=== PATIENT | male | born 1955 | race Caucasian/White ===

== ENCOUNTER 2017-09-06 21:16 | Emergency (ER) | payer BC ==
[2017-09-06] MEDS ORDERED: Aspirin 81 MG Tab.Chew PO ONE (21:19)
[2017-09-06 21:37] VITALS: BP 169/90
[2017-09-06] MEDS ORDERED: Ibuprofen 600 MG Tab PO ONE (21:39)
--- NOTE | 2017-09-06 21:41 | EDM.PDOC ---
ED HPI GENERAL MEDICAL PROBLEM - General Chief Complaint: Chest Pain Stated Complaint: CHEST PAIN Time Seen by Provider: 09/06/17 21:36 Source of Information: Reports: Patient, Family History Limitations: Reports: No Limitations - History of Present Illness INITIAL COMMENTS - FREE TEXT/NARRATIVE: 61 y.o.w.m came with is SO to ed due to severe right ant shoulder pain after he was cleaning a mud hole out. Pt is right handed. No trauma, no N/V/D no diaphoresis, No H/O CAD. Pain is worse when moving his right shoulder, no F/C BP 169/90 Temp 37.3 pulse 88 Pulse ox 98 Onset: Today Onset Date: 09/06/17 Onset Time: 20:00 Duration: Hour(s):, Improving Location: Reports: Chest Quality: Reports: Dull Severity: Mild Improves with: Reports: Rest Worsens with: Reports: Movement Associated Symptoms: Reports: Chest Pain Right Chest Pain Score (Numeric/FACES): 1 - Related Data Allergies Allergy/AdvReac Type Severity Reaction Status Date / Time Penicillins Allergy Hives Verified 09/06/17 21:34 Home Meds: Home Meds Lisinopril 10 mg PO DAILY 09/06/17 [History] Past Medical History - Past Health History Medical/Surgical History: Denies Medical/Surgical History Social & Family History - Tobacco Use Smoking Status *Q: Never Smoker - Recreational Drug Use Recreational Drug Use: No ED ROS GENERAL - Review of Systems Review Of Systems: See Below Constitutional: Reports: No Symptoms HEENT: Reports: No Symptoms Respiratory: Reports: No Symptoms Cardiovascular: Reports: No Symptoms Endocrine: Reports: No Symptoms GI/Abdominal: Reports: No Symptoms : Reports: No Symptoms Musculoskeletal: Reports: Muscle Pain (r anterior chest wall) Skin: Reports: No Symptoms Neurological: Reports: No Symptoms Psychiatric: Reports: No Symptoms Hematologic/Lymphatic: Reports: No Symptoms Immunologic: Reports: No Symptoms ED EXAM, GENERAL - Physical Exam Exam: See Below Exam Limited By: No Limitations General Appearance: Alert, WD/WN, Mild Distress Eye Exam: Bilateral Eye: Normal Inspection Ears: Normal External Exam Ear Exam: Bilateral Ear: Auricle Normal Nose: Normal Inspection Throat/Mouth: Normal Inspection Head: Atraumatic, Normocephalic Neck: Normal Inspection Respiratory/Chest: No Respiratory Distress, Lungs Clear, Normal Breath Sounds, No Accessory Muscle Use Cardiovascular: Normal Peripheral Pulses, Regular Rate, Rhythm, No Edema, No Gallop, No JVD Peripheral Pulses: 1+: Femoral (L), Femoral (R) GI/Abdominal: Normal Bowel Sounds (Male) Exam: Deferred Rectal (Males) Exam: Deferred Back Exam: Normal Inspection, Full Range of Motion Extremities: Normal Inspection, Normal Range of Motion, Non-Tender, No Pedal Edema Neurological: Alert, Oriented, CN II-XII Intact, Normal Cognition, Normal Gait, Normal Reflexes, No Motor/Sensory Deficits Psychiatric: Normal Affect, Normal Mood Skin Exam: Warm, Dry, Intact, Normal Color, No Rash Lymphatic: No Adenopathy EKG INTERPRETATION EKG Date: 09/06/17 Time: 21:15 Rhythm: NSR Rate (Beats/Min): 84 [place]: Normal P-Wave: Present QRS: Normal ST-T: Normal QT: Normal Comparison: NA - No Prior EKG Course - Vital Signs Text/Narrative:: 61 y.o.w.m came with is SO to ed due to severe right ant shoulder pain after he was cleaning a mud hole out. Pt is right handed. No trauma, no N/V/D no diaphoresis, No H/O CAD. Pain is worse when moving his right shoulder, no F/C BP 169/90 Temp 37.3 pulse 88 Pulse ox 98 PE: WNWD WM NAD with RUQ ant shoulder pain Impression: Ant shoulder pain Tx: ICE, pt will take Motrin at home Reexam: Pt felt better Plan: D/C with instructions. Last Recorded V/S: Last Vital Signs Temp 37.3 C 09/06/17 21:36 Pulse 88 09/06/17 21:36 Resp 18 09/06/17 21:36 BP 169/90 H 09/06/17 21:36 Pulse Ox 98 09/06/17 21:36 - Orders/Labs/Meds Orders: Active Orders 24 hr Category Date Time Status EKG Documentation Completion [RC] ASDIRECTED Care 09/06/17 21:35 Active EKG 12 Lead [EK] Routine Ther 09/06/17 21:35 Ordered Meds: Medications Discontinued Medications Generic Name Dose Route Start Last Admin Trade Name Freq PRN Reason Stop Dose Admin Aspirin 324 mg 09/06/17 21:19 09/06/17 21:19 Aspirin PO 09/06/17 21:20 324 mg ONETIME ONE Administration Departure - Departure Time of Disposition: 21:41 Disposition: Home, Self-Care 01 Condition: Good Clinical Impression: Muscular aches Referrals: Luis Eduardo Robertson MD [Primary Care Provider] - Forms: ED Department Discharge Additional Instructions: Please apply ice to the affected area, please take Motrin for pain, please follow up, please come back it your symptoms get worse acutely. - My Orders Last 24 Hours: My Active Orders 09/06/17 21:35 EKG Documentation Completion [RC] ASDIRECTED EKG 12 Lead [EK] Routine - Assessment/Plan Last 24 Hours: My Active Orders 09/06/17 21:35 EKG Documentation Completion [RC] ASDIRECTED EKG 12 Lead [EK] Routine
== END 2017-09-06 21:47 | disposition home or self-care (01) ==
LOC: FB.ED 21:16
DX: M25.511 Pain in right shoulder (principal); M79.1 Myalgia; Z88.0 Allergy status to penicillin
CPT/HCPCS: 93005; 99285; A9270; 99284

== ENCOUNTER 2018-04-14 21:58 | Emergency (ER) | payer BC ==
[2018-04-14] MEDS ORDERED: Aspirin 81 MG Tab.Chew PO ONE (22:30)
[2018-04-14] MEDS ORDERED: Sodium Chloride 0.9% 1,000 ML IV SCH ×2 (22:30→22:45)
[2018-04-14] MEDS ORDERED: Diltiazem 25 MG/5 ML SDV IVPUSH ONE (23:30)
--- NOTE | 2018-04-15 00:31 | EDM.PDOC ---
ED HPI GENERAL MEDICAL PROBLEM - General Stated Complaint: IRREGULAR HEARBEAT Time Seen by Provider: 04/14/18 22:05 Source of Information: Reports: Patient History Limitations: Reports: No Limitations - History of Present Illness INITIAL COMMENTS - FREE TEXT/NARRATIVE: c/o dizzy working outside all day, at 4p felt weak and lighted and dizzy, no sob, no cp felt warm, no fever, no sweats never smoked no prior afib or CV problems had AF with RVR with rate 132 on arrival, EKG neg initial top 0.03, repeat at 2h was 0.06 d/w Dr Conrad at [facility] who accepted pt in transfer given 1 liters of IVF prior to giving diltiazem 20 mg IV, HR dec'd into 80s but still in afib u/a dilute did drink over 32 oz water today, no caffeine and daughter present has htn, on lisinopril 10 mg daily as only med - Related Data Allergies Allergy/AdvReac Type Severity Reaction Status Date / Time Penicillins Allergy Hives Verified 04/15/18 01:37 Home Meds: Home Meds Lisinopril 10 mg PO DAILY 09/06/17 [History] Past Medical History - Past Health History Medical/Surgical History: Denies Medical/Surgical History Cardiovascular History: Reports: Hypertension Social & Family History - Caffeine Use Caffeine Use: Reports: Coffee, Soda ED ROS GENERAL - Review of Systems Review Of Systems: See Below Constitutional: Reports: Weakness. Denies: Fever HEENT: Reports: No Symptoms Respiratory: Reports: No Symptoms Cardiovascular: Reports: No Symptoms. Denies: Chest Pain, Edema, Palpitations Endocrine: Reports: No Symptoms GI/Abdominal: Reports: No Symptoms : Reports: No Symptoms Musculoskeletal: Reports: No Symptoms Skin: Reports: No Symptoms Neurological: Reports: Dizziness Psychiatric: Reports: No Symptoms Hematologic/Lymphatic: Reports: No Symptoms Immunologic: Reports: No Symptoms ED EXAM, GENERAL - Physical Exam Exam: See Below Exam Limited By: No Limitations General Appearance: Alert, WD/WN, No Apparent Distress Eye Exam: Bilateral Eye: Normal Inspection Ears: Normal External Exam, Normal Canal, Hearing Grossly Normal Nose: Normal Inspection, Normal Mucosa, No Blood Throat/Mouth: Normal Inspection, Normal Lips, Normal Teeth, Normal Gums, Normal Oropharynx, Normal Voice, No Airway Compromise Head: Atraumatic, Normocephalic Neck: Normal Inspection, Supple, Non-Tender, Full Range of Motion Respiratory/Chest: No Respiratory Distress, Lungs Clear, Normal Breath Sounds, No Accessory Muscle Use, Chest Non-Tender Cardiovascular: No Edema, No Gallop, No JVD, No Rub, Other (irreg irreg, 2/6 [place] at [place], quiet precoridum) GI/Abdominal: Soft, Non-Tender, No Distention Back Exam: Normal Inspection, Full Range of Motion, NT Extremities: Normal Inspection, Normal Range of Motion, Non-Tender, No Pedal Edema Neurological: Alert, Oriented, CN II-XII Intact, Normal Cognition, No Motor/ Sensory Deficits Psychiatric: Normal Affect, Normal Mood Skin Exam: Warm, Dry, Intact, Normal Color, No Rash Lymphatic: No Adenopathy Course - Vital Signs Last Recorded V/S: Last Vital Signs Temp 36.8 C 04/14/18 22:08 Pulse 141 H 04/14/18 22:08 Resp 18 04/14/18 22:08 BP 137/77 04/14/18 22:08 Pulse Ox 97 04/14/18 22:08 - Orders/Labs/Meds Orders: Active Orders 24 hr Category Date Time Status INR,PT,PROTHROMBIN TIME [COAG] Stat Lab 04/15/18 01:53 Received PTT,PARTIAL THROMBOPLSTIN TIME [COAG] Stat Lab 04/15/18 01:53 Received Heparin Sodium/0.45% NaCl [Heparin 25,000 Units in 1/2 Med 04/15/18 01:30 Active NS 500 ML] 25,000 units in 500 ml IV TITRATE Medication Orders Heparin Sodium/Sodium Chloride (Heparin 25,000 Units In 1/2 Ns 500 Ml) 25,000 units in 500 mls @ 20 mls/hr IV TITRATE PATRICIA; Protocol Labs: Laboratory Tests 04/14/18 04/14/18 04/14/18 Range/Units 22:35 22:35 22:35 WBC 9.5 (4.5-12.0) X10-3/uL RBC 4.33 (4.30-5.75) x10(6)uL Hgb 14.2 (11.5-15.5) g/dL Hct 40.6 (30.0-51.3) % MCV 93.8 (80-96) fL MCH 32.9 (27.7-33.6) pg MCHC 35.1 (32.2-35.4) g/dL RDW 12.7 (11.5-15.5) % Plt Count 293 (125-369) X10(3)uL MPV 8.3 (7.4-10.4) fL Neut % (Auto) 56.7 (46-82) % Lymph % (Auto) 30.0 (13-37) % [place] % (Auto) 9.0 (4-12) % Eos % (Auto) 2 (1.0-5.0) % Baso % (Auto) 2 (0-2) % Neut # (Auto) 5.4 (1.6-8.3) # Lymph # (Auto) 2.8 (0.6-5.0) # [place] # (Auto) 0.9 (0.0-1.3) # Eos # (Auto) 0.2 (0.0-0.8) # Baso # (Auto) 0.2 (0.0-0.2) # D-Dimer, Quantitative (0.0-0.59) mg/LFEU Sodium 139 (135-145) mmol/L Potassium 4.4 (3.5-5.3) mmol/L Chloride 105 (100-110) mmol/L Carbon Dioxide 23 (21-32) mmol/L BUN 22 H (7-18) mg/dL Creatinine 1.0 (0.70-1.30) mg/dL Est Cr Clr Drug Dosing TNP Estimated GFR (MDRD) > 60 (>60) BUN/Creatinine Ratio 22.0 H (9-20) Glucose 131 H (80-116) mg/dL Calcium 9.1 (8.6-10.2) mg/dL Total Bilirubin 0.3 (0.1-1.3) mg/dL AST 23 (5-25) IU/L ALT 24 (12-36) U/L Alkaline Phosphatase 71 (56-112) IU/L Troponin I 0.034 (<0.017-0.056) ng/mL C-Reactive Protein 0.4 L (0.5-0.9) mg/dL NT-Pro-B Natriuret Pep 162 H (<=125) pg/mL Total Protein 6.9 (6.0-8.0) g/dL Albumin 3.8 (3.2-4.6) g/dL Globulin 3.1 g/dL Albumin/Globulin Ratio 1.2 TSH, Ultra Sensitive 1.62 (0.36-3.74) IU/mL Urine Color (YELLOW) Urine Appearance (CLEAR) Urine pH (5.0-6.5) Ur Specific [place] (1.010-1.025) Urine Protein (NEGATIVE) mg/dL Urine Glucose (UA) (NEGATIVE) mg/dL Urine Ketones (NEGATIVE) mg/dL Urine Occult Blood (NEGATIVE) Urine Nitrite (NEGATIVE) Urine Bilirubin (NEGATIVE) Urine Urobilinogen (NEGATIVE) mg/dL Ur Leukocyte Esterase (NEGATIVE) Urine RBC (0) Urine WBC (0) Ur Squamous Epith Cells (NS,R,O) Urine Bacteria (NS) 04/14/18 04/15/18 04/15/18 Range/Units 22:35 00:25 00:50 WBC (4.5-12.0) X10-3/uL RBC (4.30-5.75) x10(6)uL Hgb (11.5-15.5) g/dL Hct (30.0-51.3) % MCV (80-96) fL MCH (27.7-33.6) pg MCHC (32.2-35.4) g/dL RDW (11.5-15.5) % Plt Count (125-369) X10(3)uL MPV (7.4-10.4) fL Neut % (Auto) (46-82) % Lymph % (Auto) (13-37) % [place] % (Auto) (4-12) % Eos % (Auto) (1.0-5.0) % Baso % (Auto) (0-2) % Neut # (Auto) (1.6-8.3) # Lymph # (Auto) (0.6-5.0) # [place] # (Auto) (0.0-1.3) # Eos # (Auto) (0.0-0.8) # Baso # (Auto) (0.0-0.2) # D-Dimer, Quantitative 0.44 (0.0-0.59) mg/LFEU Sodium (135-145) mmol/L Potassium (3.5-5.3) mmol/L Chloride (100-110) mmol/L Carbon Dioxide (21-32) mmol/L BUN (7-18) mg/dL Creatinine (0.70-1.30) mg/dL Est Cr Clr Drug Dosing Estimated GFR (MDRD) (>60) BUN/Creatinine Ratio (9-20) Glucose (80-116) mg/dL Calcium (8.6-10.2) mg/dL Total Bilirubin (0.1-1.3) mg/dL AST (5-25) IU/L ALT (12-36) U/L Alkaline Phosphatase (56-112) IU/L Troponin I 0.068 H (<0.017-0.056) ng/mL C-Reactive Protein (0.5-0.9) mg/dL NT-Pro-B Natriuret Pep (<=125) pg/mL Total Protein (6.0-8.0) g/dL Albumin (3.2-4.6) g/dL Globulin g/dL Albumin/Globulin Ratio TSH, Ultra Sensitive (0.36-3.74) IU/mL Urine Color Yellow (YELLOW) Urine Appearance Clear (CLEAR) Urine pH 5.0 (5.0-6.5) Ur Specific [place] 1.020 (1.010-1.025) Urine Protein Negative (NEGATIVE) mg/dL Urine Glucose (UA) Normal (NEGATIVE) mg/dL Urine Ketones Negative (NEGATIVE) mg/dL Urine Occult Blood Negative (NEGATIVE) Urine Nitrite Negative (NEGATIVE) Urine Bilirubin Negative (NEGATIVE) Urine Urobilinogen Normal (NEGATIVE) mg/dL Ur Leukocyte Esterase Negative (NEGATIVE) Urine RBC 0-5 (0) Urine WBC 0-5 (0) Ur Squamous Epith Cells Occasional (NS,R,O) Urine Bacteria Few H (NS) Meds: Medications Generic Name Dose Route Start Last Admin Trade Name Freq PRN Reason Stop Dose Admin Heparin Sodium/Sodium Chloride 25,000 units in 500 mls @ 20 mls/hr 04/15/18 01 :30 Heparin 25,000 Units In 1/2 Ns 500 Ml IV TITRATE PATRICIA Protocol Discontinued Medications Generic Name Dose Route Start Last Admin Trade Name Freq PRN Reason Stop Dose Admin Heparin Sodium (Porcine) Confirm 04/15/18 01:45 Heparin Sodium Administered 04/15/18 01:46 Dose 5,000 units .ROUTE .STK-MED ONE Heparin Sodium (Porcine) 4,000 units 04/15/18 01:49 Heparin Sodium IVPUSH 04/15/18 01:50 ONETIME ONE Departure - Departure Time of Disposition: 01:23 Disposition: DC/Tfer to Acute Hospital 02 Reason for Transfer *Q: Other Condition: Good Clinical Impression: Atrial fibrillation with rapid ventricular response, Dehydration, Elevated BUN , Elevated troponin Referrals: Luis Eduardo Robertson MD [Primary Care Provider] - - My Orders Last 24 Hours: My Active Orders 04/15/18 01:30 Heparin Sodium/0.45% NaCl [Heparin 25,000 Units in 1/2 NS 500 ML] 25,000 units in 500 ml IV TITRATE 04/15/18 01:53 INR,PT,PROTHROMBIN TIME [COAG] Stat PTT,PARTIAL THROMBOPLSTIN TIME [COAG] Stat - Assessment/Plan Last 24 Hours: My Active Orders 04/15/18 01:30 Heparin Sodium/0.45% NaCl [Heparin 25,000 Units in 1/2 NS 500 ML] 25,000 units in 500 ml IV TITRATE 04/15/18 01:53 INR,PT,PROTHROMBIN TIME [COAG] Stat PTT,PARTIAL THROMBOPLSTIN TIME [COAG] Stat
[2018-04-15] MEDS ORDERED: Heparin Sodium/0.45% NaCl 25,000 UNITS/500 ML BAG IV SCH (01:30)
[2018-04-15] MEDS ORDERED: Heparin Sodium 5,000 Units/ML Vial ONE (01:45)
[2018-04-15] MEDS ORDERED: Heparin Sodium 5,000 Units/ML Vial IVPUSH ONE (01:49)
[2018-04-15 03:20] VITALS: BP 122/92
[2018-04-15] MEDS ORDERED: Sodium Chloride 0.9% 1,000 ML IV SCH (07:30)
--- NOTE | 2018-04-15 12:08 | CR ---
INDICATION: Irregular heartbeat. CHEST: PA and lateral views of the chest were obtained 04/15/2018 - no comparisons. The heart is normal in size and shape. The aorta is tortuous. Overlying EKG leads are noted. A mild dextroconcave scoliosis of the lower middle thoracic spine is noted with mild degenerative changes in that area off vertebral bodies anteriorly. Lateral hypertrophic changes are also noted in the lower thoracic levels on the right. An active infiltrate or effusion was not identified. IMPRESSION: 1. No acute process. 2. ASD aorta - mild. 3. Mild scoliosis. MTDD
== END 2018-04-15 02:05 ==
LOC: FB.ED 21:58
DX: I48.91 Unspecified atrial fibrillation (principal); E86.0 Dehydration; R79.89 Other specified abnormal findings of blood chemistry; I10 Essential (primary) hypertension; Z88.0 Allergy status to penicillin; Z79.899 Other long term (current) drug therapy
CPT/HCPCS: 36415; 71046; 80053; 81001; 83880; 84443; 84484; 85025; 85379; 85610; 85730; 86140; 96360; 96361; 96374; 96376; 99284; A9270; J1644; J3490; J7030

== ENCOUNTER 2019-04-04 13:15 | Emergency (ER) | payer BC ==
[2019-04-04] MEDS ORDERED: Meclizine 25 MG Tab PO ONE (13:33)
--- NOTE | 2019-04-04 13:37 | EDM.PDOC ---
ED HPI GENERAL MEDICAL PROBLEM - General Stated Complaint: DIZZY, HBP Time Seen by Provider: 04/04/19 13:15 Source of Information: Reports: Patient, Family History Limitations: Reports: No Limitations - History of Present Illness INITIAL COMMENTS - FREE TEXT/NARRATIVE: 63 y.o.w.m came with his to the ed due to dizziness. Dizziness is worse when moving his head to the right. Pt has a H/O A fib, taxes Xarelto. He is currently in NSR. No N/V/D, no CP, no SOB or any other acute med issues. BP 156 /97 RR 18 Pulse ox 98% on RA Temp 36.4 Pulse 72 Onset Date: 04/04/19 Onset Time: 12:00 Duration: Minutes:, Hour(s):, Constant Location: Reports: Head Quality: Reports: Other (dizzy) Severity: Mild Improves with: Reports: Rest Worsens with: Reports: Movement Context: Reports: Other Associated Symptoms: Reports: No Other Symptoms - Related Data Allergies Allergy/AdvReac Type Severity Reaction Status Date / Time Penicillins Allergy Hives Verified 04/04/19 13:29 Home Meds: Home Meds Aspirin [Ecotrin] 81 mg PO BEDTIME 04/04/19 [History] Meclizine [Antivert] 25 mg PO Q6H PRN #12 tab 04/04/19 [Rx] Metoprolol Succinate 25 mg BEDTIME 04/04/19 [History] Rivaroxaban [Xarelto] 20 mg BEDTIME 04/04/19 [History] atorvaSTATin Calcium [Atorvastatin Calcium] 10 mg BEDTIME 04/04/19 [History] Past Medical History - Past Health History Medical/Surgical History: Denies Medical/Surgical History Cardiovascular History: Reports: Hypertension Musculoskeletal History: Reports: Fracture Other Musculoskeletal History: hx fx ribs - Infectious Disease History Infectious Disease History: Reports: Chicken Pox, Measles, Mumps, Shingles Social & Family History - Family History Family Medical History: Noncontributory - Caffeine Use Caffeine Use: Reports: Coffee, Soda ED ROS GENERAL - Review of Systems Review Of Systems: See Below Constitutional: Reports: No Symptoms HEENT: Reports: No Symptoms Respiratory: Reports: No Symptoms Cardiovascular: Reports: No Symptoms Endocrine: Reports: No Symptoms GI/Abdominal: Reports: No Symptoms : Reports: No Symptoms Musculoskeletal: Reports: No Symptoms Skin: Reports: No Symptoms Neurological: Reports: Dizziness Psychiatric: Reports: No Symptoms Hematologic/Lymphatic: Reports: No Symptoms Immunologic: Reports: No Symptoms ED EXAM, GENERAL - Physical Exam Exam: See Below Exam Limited By: No Limitations General Appearance: Alert, WD/WN, Mild Distress Eye Exam: Bilateral Eye: Nystagmus (more at gaze to the right ) Ears: Normal External Exam Ear Exam: Bilateral Ear: Auricle Normal Nose: Normal Inspection Throat/Mouth: Normal Inspection Head: Atraumatic, Normocephalic Neck: Normal Inspection, Supple, Non-Tender Respiratory/Chest: No Respiratory Distress, Lungs Clear, Normal Breath Sounds, Chest Non-Tender Cardiovascular: Normal Peripheral Pulses, Regular Rate, Rhythm, No Edema Peripheral Pulses: 2+: Brachial (L) GI/Abdominal: Normal Bowel Sounds, Soft, Non-Tender, No Organomegaly (Male) Exam: Deferred Rectal (Males) Exam: Deferred Back Exam: Normal Inspection, Full Range of Motion Extremities: Normal Inspection, Normal Range of Motion, Non-Tender, Normal Capillary Refill Neurological: Alert, Oriented, CN II-XII Intact, Abnormal Gait (due to dizziness ) Psychiatric: Normal Affect, Normal Mood Skin Exam: Warm, Dry, Intact, Normal Color, No Rash Lymphatic: No Adenopathy EKG INTERPRETATION EKG Date: 04/04/19 Time: 13:00 Rhythm: NSR Rate (Beats/Min): 67 [place]: Normal P-Wave: Present QRS: Normal ST-T: Normal QT: Normal Comparison: NA - No Prior EKG Course - Vital Signs Text/Narrative:: 63 y.o.w.m came with his to the ed due to dizziness. Dizziness is worse when moving his head to the right. Pt has a H/O A fib, taxes Xarelto. He is currently in NSR. No N/V/D, no CP, no SOB or any other acute med issues. BP 156 /97 RR 18 Pulse ox 98% on RA Temp 36.4 Pulse 72 PE: WNWD W M with bilat nystagmus Labs: CBC. BMP Troponin: all Nl Impression: Vertigo, BPPV Tx: Antivert Reexam: Symptoms improved 98%, was ambulating fine, Nystagmus improved 98% Plan: D/C with instructions. Last Recorded V/S: Last Vital Signs Temp 36.4 C 04/04/19 13:15 Pulse 69 04/04/19 14:25 Resp 18 04/04/19 14:25 BP 152/93 H 04/04/19 14:25 Pulse Ox 98 04/04/19 14:25 Orthostatic Blood Pressure [ 132/100 Standing] Orthostatic Blood Pressure [ 165/96 Sitting] Orthostatic Blood Pressure [ 154/82 Supine] - Orders/Labs/Meds Labs: Laboratory Tests 04/04/19 04/04/19 04/04/19 Range/Units 13:25 13:25 13:25 WBC 7.2 (4.5-12.0) X10-3/uL RBC 4.43 (4.30-5.75) x10(6)uL Hgb 14.4 (13.5-17.8) g/dL Hct 41.4 (30.0-51.3) % MCV 93.5 (80-96) fL MCH 32.6 (27.7-33.6) pg MCHC 34.9 (32.2-35.4) g/dL RDW 12.8 (11.5-15.5) % Plt Count 254 (125-369) X10(3)uL MPV 8.2 (7.4-10.4) fL Neut % (Auto) 62.4 (46-82) % Lymph % (Auto) 26.3 (13-37) % [place] % (Auto) 7.1 (4-12) % Eos % (Auto) 3 (1.0-5.0) % Baso % (Auto) 1 (0-2) % Neut # (Auto) 4.4 (1.6-8.3) # Lymph # (Auto) 1.9 (0.6-5.0) # [place] # (Auto) 0.5 (0.0-1.3) # Eos # (Auto) 0.2 (0.0-0.8) # Baso # (Auto) 0.1 (0.0-0.2) # Sodium 141 (135-145) mmol/L Potassium 4.2 (3.5-5.3) mmol/L Chloride 105 (100-110) mmol/L Carbon Dioxide 30 (21-32) mmol/L BUN 11 D (7-18) mg/dL Creatinine 0.9 (0.70-1.30) mg/dL Est Cr Clr Drug Dosing 99.10 mL/min Estimated GFR (MDRD) > 60 (>60) BUN/Creatinine Ratio 12.2 (9-20) Glucose 103 (80-116) mg/dL Calcium 8.8 (8.6-10.2) mg/dL Troponin I < 0.017 L (<0.017-0.056) ng/mL Meds: Medications Discontinued Medications Generic Name Dose Route Start Last Admin Trade Name Freq PRN Reason Stop Dose Admin Aspirin 324 mg 04/04/19 13:53 04/04/19 14:31 Aspirin PO 04/04/19 13:54 324 mg ONETIME ONE Administration Meclizine HCl 50 mg 04/04/19 13:33 04/04/19 13:53 Antivert PO 04/04/19 13:34 50 mg ONETIME ONE Administration Departure - Departure Time of Disposition: 14:20 Disposition: Home, Self-Care 01 Condition: Good Clinical Impression: Vertigo Prescriptions: Meclizine [Antivert] 25 mg PO Q6H PRN #12 tab PRN Reason: for dizziness Instructions: Meclizine tablets or capsules, Vertigo, [id number], Dizziness, [id number] Referrals: Luis Eduardo Robertson MD [Primary Care Provider] - Forms: ED Department Discharge Additional Instructions: Please continue your home medications, please take Antivert as recommended, please follow up with your regular MD at clinic to schedule an MRI brain. Please come back if your symptoms get worse acutely.
[2019-04-04] MEDS ORDERED: Aspirin 81 MG Tab.Chew PO ONE (13:53)
[2019-04-04 16:45] VITALS: BP 152/93
== END 2019-04-04 14:40 | disposition home or self-care (01) ==
LOC: FB.ED 13:15
DX: H81.11 Benign paroxysmal vertigo, right ear (principal); I10 Essential (primary) hypertension; Z88.0 Allergy status to penicillin; Z79.82 Long term (current) use of aspirin; Z79.899 Other long term (current) drug therapy
CPT/HCPCS: 36415; 80048; 84484; 85025; 99283; A9270

== ENCOUNTER 2019-04-26 22:58 | Emergency (ER) | payer BC ==
[2019-04-26] MEDS: Sodium Chloride 0.9% 10 ML Syringe FLUSH PRN (23:10)
--- NOTE | 2019-04-26 23:35 | EDM.PDOC ---
ED HPI GENERAL MEDICAL PROBLEM - General Chief Complaint: Cardiovascular Problem Stated Complaint: HEART PROBLEMS Time Seen by Provider: 04/26/19 23:20 Source of Information: Reports: Patient History Limitations: Reports: No Limitations - History of Present Illness INITIAL COMMENTS - FREE TEXT/NARRATIVE: pt c/o palpitation for the past 2 hrs, initially felt little twinge at chest lasting for moments when it started but this has resolved since, pt denies any chest pain or SOB or syncope or any other associated sx. pt report a Hx of recurrent afib and a nl stress test about a year ago. pt is anticoagulated and on metoprolol 25 daily. - Related Data Allergies Allergy/AdvReac Type Severity Reaction Status Date / Time Penicillins Allergy Hives Verified 04/26/19 23:19 Home Meds: Home Meds Aspirin [Ecotrin] 81 mg PO BEDTIME 04/04/19 [History] Metoprolol Succinate 25 mg BEDTIME 04/04/19 [History] Rivaroxaban [Xarelto] 20 mg BEDTIME 04/04/19 [History] atorvaSTATin Calcium [Atorvastatin Calcium] 10 mg BEDTIME 04/04/19 [History] Past Medical History - Past Health History Medical/Surgical History: Denies Medical/Surgical History Cardiovascular History: Reports: Afib, Hypertension Musculoskeletal History: Reports: Fracture Other Musculoskeletal History: hx fx ribs Endocrine/Metabolic History: Reports: Obesity/BMI 30+ Hematologic History: Reports: Anticoagulation Therapy - Infectious Disease History Infectious Disease History: Reports: Chicken Pox, Measles, Mumps, Shingles - Past Surgical History Head Surgeries/Procedures: Reports: None Social & Family History - Family History Family Medical History: Noncontributory - Tobacco Use Smoking Status *Q: Never Smoker - Caffeine Use Caffeine Use: Reports: None - Recreational Drug Use Recreational Drug Use: No ED ROS GENERAL - Review of Systems Review Of Systems: See Below Constitutional: Reports: No Symptoms. Denies: Fever, Chills HEENT: Reports: No Symptoms Respiratory: Reports: No Symptoms. Denies: Shortness of Breath, Pleuritic Chest Pain, Cough Cardiovascular: Reports: No Symptoms. Denies: Chest Pain, Blood Pressure Problem, Dyspnea on Exertion, Edema GI/Abdominal: Reports: No Symptoms. Denies: Abdominal Pain, Nausea, Vomiting Musculoskeletal: Reports: No Symptoms Skin: Reports: No Symptoms ED EXAM, GENERAL - Physical Exam Exam: See Below Exam Limited By: No Limitations General Appearance: Alert, No Apparent Distress Eye Exam: Bilateral Eye: Normal Inspection Respiratory/Chest: No Respiratory Distress, Lungs Clear, Normal Breath Sounds Cardiovascular: Normal Peripheral Pulses, Regular Rate, Rhythm GI/Abdominal: Normal Bowel Sounds, Soft, Non-Tender Extremities: Normal Inspection, Normal Range of Motion Neurological: Alert, Oriented, CN II-XII Intact Course - Vital Signs Text/Narrative:: unremarkable labs were explained to pt , EKG shows afib. pt HR was controlled and remained this way after Cardizem and Lopressor , rest of his vitals are WNL. pt has recurrent chronic afib and he is asymptomatic with this at this time, he did not convert yet and likely to do so on his own , pt was hydrated with 1 litter NS and will increase his metoprolol to 50 mg daily, pt to follow with PCP in the morning for re-check and return to ER if becoming symptomatic again. Last Recorded V/S: Last Vital Signs Temp 36.6 C 04/26/19 22:58 Pulse 145 H 04/26/19 22:58 Resp 18 04/26/19 22:58 BP 175/94 H 04/26/19 22:58 Pulse Ox 96 04/26/19 22:58 - Orders/Labs/Meds Orders: Active Orders 24 hr Category Date Time Status EKG Documentation Completion [RC] ASDIRECTED Care 04/26/19 23:39 Active Chest 1V Frontal [CR] Stat Exams 04/26/19 23:37 Taken Metoprolol Tartrate [Lopressor] Med 04/27/19 01:15 Active 5 mg IVPUSH Q5M Sodium Chloride 0.9% [Saline Flush] Med 04/26/19 23:25 Active 10 ml FLUSH ASDIRECTED PRN Peripheral IV Insertion Adult [OM.PC] Routine Oth 04/26/19 23:25 Ordered EKG 12 Lead [EK] Routine Ther 04/26/19 23:39 Ordered Medication Orders Metoprolol Tartrate (Lopressor) 5 mg IVPUSH Q5M PATRICIA Stop: 04/27/19 01:21 Sodium Chloride (Saline Flush) 10 ml FLUSH ASDIRECTED PRN PRN Reason: Keep Vein Open Labs: Laboratory Tests 04/26/19 04/26/19 04/26/19 Range/Units 23:08 23:08 23:08 WBC 11.2 (4.5-12.0) X10-3/uL RBC 4.52 (4.30-5.75) x10(6)uL Hgb 15.2 (13.5-17.8) g/dL Hct 42.6 (30.0-51.3) % MCV 94.2 (80-96) fL MCH 33.5 (27.7-33.6) pg MCHC 35.6 H (32.2-35.4) g/dL RDW 12.8 (11.5-15.5) % Plt Count 268 (125-369) X10(3)uL Sodium 142 (135-145) mmol/L Potassium 3.5 (3.5-5.3) mmol/L Chloride 105 (100-110) mmol/L Carbon Dioxide 27 (21-32) mmol/L BUN 17 (7-18) mg/dL Creatinine 0.9 (0.70-1.30) mg/dL Est Cr Clr Drug Dosing 99.10 mL/min Estimated GFR (MDRD) > 60 (>60) BUN/Creatinine Ratio 18.9 (9-20) Glucose 129 H (80-116) mg/dL Calcium 9.1 (8.6-10.2) mg/dL Total Bilirubin 0.3 (0.1-1.3) mg/dL AST 15 D (5-25) IU/L ALT 29 D (12-36) U/L Alkaline Phosphatase 98 (56-112) IU/L Troponin I < 0.017 L (<0.017-0.056) ng/mL Total Protein 7.5 (6.0-8.0) g/dL Albumin 4.2 (3.2-4.6) g/dL Globulin 3.3 g/dL Albumin/Globulin Ratio 1.3 TSH, Ultra Sensitive 2.07 (0.36-3.74) IU/mL Meds: Medications Generic Name Dose Route Start Last Admin Trade Name Freq PRN Reason Stop Dose Admin Metoprolol Tartrate 5 mg 04/27/19 01:15 Lopressor IVPUSH 04/27/19 01:21 Q5M PATRICIA Sodium Chloride 10 ml 04/26/19 23:25 Saline Flush FLUSH ASDIRECTED PRN Keep Vein Open Discontinued Medications Generic Name Dose Route Start Last Admin Trade Name Freq PRN Reason Stop Dose Admin Diltiazem HCl Confirm 04/26/19 23:36 04/26/19 23:52 Diltiazem Administered 04/26/19 23:37 Not Given Dose 25 mg .ROUTE .STK-MED ONE Diltiazem HCl 20 mg 04/26/19 23:37 04/26/19 23:43 Diltiazem IVPUSH 04/26/19 23:38 20 mg ONETIME ONE Administration Sodium Chloride 1,000 mls @ 999 drops/sec 04/26/19 23:37 04/26/19 23:30 Normal Saline IV 04/26/19 23:38 999 drops/sec .BOLUS ONE Administration Departure - Departure Time of Disposition: 01:10 Disposition: Home, Self-Care 01 Clinical Impression: Atrial fibrillation with rapid ventricular response Referrals: Luis Eduardo Robertson MD [Primary Care Provider] - Forms: ED Department Discharge - Problem List & Annotations (1) Atrial fibrillation with RVR SNOMED Code(s): 836833852390439 Code(s): I48.91 - UNSPECIFIED ATRIAL FIBRILLATION Status: Acute Current Visit: Yes - My Orders Last 24 Hours: My Active Orders 04/26/19 23:25 Sodium Chloride 0.9% [Saline Flush] 10 ml FLUSH ASDIRECTED PRN Peripheral IV Insertion Adult [OM.PC] Routine 04/26/19 23:37 Chest 1V Frontal [CR] Stat 04/26/19 23:39 EKG Documentation Completion [RC] ASDIRECTED EKG 12 Lead [EK] Routine 04/27/19 01:15 Metoprolol Tartrate [Lopressor] 5 mg IVPUSH Q5M - Assessment/Plan Last 24 Hours: My Active Orders 04/26/19 23:25 Sodium Chloride 0.9% [Saline Flush] 10 ml FLUSH ASDIRECTED PRN Peripheral IV Insertion Adult [OM.PC] Routine 04/26/19 23:37 Chest 1V Frontal [CR] Stat 04/26/19 23:39 EKG Documentation Completion [RC] ASDIRECTED EKG 12 Lead [EK] Routine 04/27/19 01:15 Metoprolol Tartrate [Lopressor] 5 mg IVPUSH Q5M
[2019-04-26] MEDS ORDERED: Diltiazem 25 MG/5 ML SDV ONE (23:36)
[2019-04-26] MEDS ORDERED: Diltiazem 25 MG/5 ML SDV IVPUSH ONE (23:37)
[2019-04-26] MEDS ORDERED: Sodium Chloride 0.9% 1,000 ML IV ONE (23:37)
[2019-04-27] MEDS: Metoprolol Tartrate 5 MG/5 ML SDV IVPUSH SCH ×2 (01:10→01:30)
[2019-04-27 01:31] VITALS: BP 111/69
[2019-04-27] MEDS: Sodium Chloride 0.9% 10 ML Syringe FLUSH PRN (01:38)
== END 2019-04-27 02:17 | disposition home or self-care (01) ==
LOC: FB.ED 22:58
DX: I48.91 Unspecified atrial fibrillation (principal); I10 Essential (primary) hypertension; E66.9 Obesity, unspecified; Z79.01 Long term (current) use of anticoagulants; Z88.0 Allergy status to penicillin; Z79.899 Other long term (current) drug therapy; Z79.82 Long term (current) use of aspirin
CPT/HCPCS: 36415; 71045; 80053; 84443; 84484; 85027; 93005; 96361; 96374; 96375; 99285; J3490; J7030

== ENCOUNTER 2020-06-22 20:09 | Emergency (ER) | payer BC ==
[2020-06-22] MEDS ORDERED: Diltiazem 25 MG/5 ML SDV IVPUSH ONE (20:38)
--- NOTE | 2020-06-22 21:31 | EDM.PDOC ---
ED HPI GENERAL MEDICAL PROBLEM - General Chief Complaint: General Stated Complaint: ATRIAL FIBRILLATION Time Seen by Provider: 06/22/20 20:35 Source of Information: Reports: Patient History Limitations: Reports: No Limitations - History of Present Illness INITIAL COMMENTS - FREE TEXT/NARRATIVE: Patient presented to the ED because of palpitations, chest tightness while he and her spouse are attending a prayer meeting. There is associated dyspnea but denies any N/V, dizziness. He has a h/o AFIB and is taking metoprolol and xarelto for anticoagulation. - Related Data Allergies Allergy/AdvReac Type Severity Reaction Status Date / Time Penicillins Allergy Hives Verified 04/26/19 23:19 Home Meds: Home Meds Aspirin [Ecotrin] 81 mg PO BEDTIME 04/04/19 [History] Rivaroxaban [Xarelto] 20 mg PO BEDTIME 04/04/19 [History] atorvaSTATin Calcium [Atorvastatin Calcium] 10 mg PO BEDTIME 04/04/19 [History] Metoprolol Succinate 50 mg PO DAILY #30 tab.er.24h 04/27/19 [Rx] Nitroglycerin [Nitrostat] 0.4 mg SL PRN MDD 3 tablets 06/22/20 [History] Past Medical History - Past Health History Medical/Surgical History: Denies Medical/Surgical History Cardiovascular History: Reports: Afib, Hypertension Musculoskeletal History: Reports: Fracture Other Musculoskeletal History: hx fx ribs Endocrine/Metabolic History: Reports: Obesity/BMI 30+ Hematologic History: Reports: Anticoagulation Therapy - Infectious Disease History Infectious Disease History: Reports: Chicken Pox, Measles, Mumps, Shingles - Past Surgical History Head Surgeries/Procedures: Reports: None Social & Family History - Family History Family Medical History: Noncontributory - Tobacco Use Smoking Status *Q: Never Smoker - Caffeine Use Caffeine Use: Reports: Coffee - Recreational Drug Use Recreational Drug Use: No ED ROS GENERAL - Review of Systems Review Of Systems: See Below Constitutional: Reports: No Symptoms HEENT: Reports: No Symptoms Respiratory: Reports: No Symptoms Cardiovascular: Reports: Chest Pain, Palpitations Endocrine: Reports: No Symptoms GI/Abdominal: Reports: No Symptoms : Reports: No Symptoms Musculoskeletal: Reports: No Symptoms Skin: Reports: No Symptoms Neurological: Reports: No Symptoms ED EXAM, GENERAL - Physical Exam Exam: See Below Exam Limited By: No Limitations General Appearance: Alert, No Apparent Distress Eye Exam: Bilateral Eye: PERRL Ears: Normal External Exam, Normal Canal Nose: Normal Inspection, Normal Mucosa, No Blood Throat/Mouth: Normal Inspection, Normal Lips, Normal Teeth Head: Atraumatic, Normocephalic Neck: Normal Inspection, Supple, Non-Tender, Full Range of Motion Respiratory/Chest: No Respiratory Distress, Lungs Clear, Normal Breath Sounds Cardiovascular: Normal Peripheral Pulses, No Edema, No Gallop, No JVD, No Murmur, No Rub, Tachycardia, Irregularly Irregular GI/Abdominal: Normal Bowel Sounds, Soft, Non-Tender, No Organomegaly Back Exam: Normal Inspection, Full Range of Motion Extremities: Normal Inspection, Normal Range of Motion, Non-Tender Neurological: Alert, Oriented, CN II-XII Intact, Normal Cognition, Normal Gait Psychiatric: Normal Affect, Normal Mood Course - Vital Signs Text/Narrative:: Labs/EKG was discussed with patient and verbalized full understanding Cardizem 25 mg IV x1 and his HR went down from 135 to 75 Metoprolol 50 mg po x1 Last Recorded V/S: Last Vital Signs Temp 36.4 C 06/22/20 20:32 Pulse 82 06/22/20 21:45 Resp 16 06/22/20 21:45 BP 115/70 06/22/20 21:45 Pulse Ox 97 06/22/20 21:45 - Orders/Labs/Meds Orders: Active Orders 24 hr Category Date Time Status EKG 12 Lead [EK] Routine Ther 06/22/20 20:38 Ordered Labs: Laboratory Tests 06/22/20 06/22/20 06/22/20 Range/Units 20:55 20:55 20:55 WBC 11.1 (4.5-12.0) X10-3/uL RBC 4.82 (4.30-5.75) x10(6)uL Hgb 15.1 (13.5-17.8) g/dL Hct 44.8 (30.0-51.3) % MCV 92.9 (80-96) fL MCH 31.4 (27.7-33.6) pg MCHC 33.8 (32.2-35.4) g/dL RDW 12.8 (11.5-15.5) % Plt Count 303 (125-369) X10(3)uL MPV 7.7 (7.4-10.4) fL Neut % (Auto) 61.2 (46-82) % Lymph % (Auto) 28.8 (13-37) % Jenkins % (Auto) 7.2 (4-12) % Eos % (Auto) 2 (1.0-5.0) % Baso % (Auto) 1 (0-2) % Neut # (Auto) 6.8 (1.6-8.3) # Lymph # (Auto) 3.2 (0.6-5.0) # Jenkins # (Auto) 0.8 (0.0-1.3) # Eos # (Auto) 0.2 (0.0-0.8) # Baso # (Auto) 0.1 (0.0-0.2) # Sodium 140 (135-145) mmol/L Potassium 4.0 (3.5-5.3) mmol/L Chloride 104 (100-110) mmol/L Carbon Dioxide 26 (21-32) mmol/L BUN 14 (7-18) mg/dL Creatinine 1.0 (0.70-1.30) mg/dL Est Cr Clr Drug Dosing 88.02 mL/min Estimated GFR (MDRD) > 60 (>60) BUN/Creatinine Ratio 14.0 (9-20) Glucose 107 (80-116) mg/dL Calcium 8.6 (8.6-10.2) mg/dL Total Bilirubin 0.4 (0.1-1.3) mg/dL AST 18 D (5-25) IU/L ALT 28 (12-36) U/L Alkaline Phosphatase 78 (56-112) IU/L Troponin I 21.9 (4.0-60.3) pg/mL Total Protein 7.3 (6.0-8.0) g/dL Albumin 4.0 (3.2-4.6) g/dL Globulin 3.3 g/dL Albumin/Globulin Ratio 1.2 Meds: Medications Discontinued Medications Generic Name Dose Route Start Last Admin Trade Name Freq PRN Reason Stop Dose Admin Diltiazem HCl 25 mg 06/22/20 20:38 06/22/20 20:52 Diltiazem IVPUSH 06/22/20 20:39 25 mg ONETIME ONE Administration Metoprolol Succinate 50 mg 06/22/20 21:34 06/22/20 21:43 Toprol Xl PO 06/22/20 21:35 50 mg ONETIME ONE Administration Departure - Departure Time of Disposition: 21:40 Disposition: Home, Self-Care 01 Condition: Good Clinical Impression: Afib - Discharge Information Instructions: Atrial Fibrillation, [id number] Referrals: Luis Eduardo Robertson MD [Primary Care Provider] - Forms: ED Department Discharge Additional Instructions: Please read discharge instructions for AFIB Continue your metoprolol succinate If your heart rate is more than 100 take an extra dose of your metoprolol Follow up as needed Sepsis Event Note (ED) - Evaluation Sepsis Screening Result: No Definite Risk - Focused Exam Vital Signs: Vital Signs Temp Pulse Pulse Resp BP BP Pulse Ox 06/22/20 21:45 82 16 115/70 97 06/22/20 21:43 80 113/78 06/22/20 20:45 134 H 18 130/80 97 06/22/20 20:32 36.4 C 141 H 18 145/77 H 100 - My Orders Last 24 Hours: My Active Orders 06/22/20 20:38 EKG 12 Lead [EK] Routine - Assessment/Plan Last 24 Hours: My Active Orders 06/22/20 20:38 EKG 12 Lead [EK] Routine
[2020-06-22] MEDS ORDERED: Metoprolol Succinate 50 MG Tab.ER PO ONE (21:34)
[2020-06-22 23:34] VITALS: BP 115/70; PULSE 82
== END 2020-06-22 21:58 | disposition home or self-care (01) ==
LOC: FB.ED 20:09
DX: I48.91 Unspecified atrial fibrillation (principal); I10 Essential (primary) hypertension; E66.9 Obesity, unspecified; Z88.0 Allergy status to penicillin; Z79.82 Long term (current) use of aspirin; Z79.899 Other long term (current) drug therapy; Z68.28 Body mass index [BMI] 28.0-28.9, adult
CPT/HCPCS: 36415; 80053; 84484; 85025; 93005; 96374; 99285; A9270; J3490

== ENCOUNTER 2025-08-14 21:23 | Emergency (ER) | payer BC, MEDICARE ==
[2025-08-14] MEDS: Sodium Chloride 0.9% 10 ML Syringe FLUSH PRN (21:30)
[2025-08-14] MEDS: Diltiazem 25 MG/5 ML SDV IVPUSH ONE ×2 (21:35→23:50)
[2025-08-14 21:42] LABS: BASOPHILS ABSOLUTE AUTO 0.1 x10-3/uL (0.0-0.3); BASOPHILS PERCENT AUTO 0.9 % (0.3-3.8); EOSINOPHILS ABSOLUTE AUTO 0.3 x10-3/uL (0.0-0.6); EOSINOPHILS PERCENT AUTO 2.3 % (0.1-6.8); LYMPHOCYTES ABSOLUTE AUTO 3.0 x10-3/uL (0.5-4.5); LYMPHOCYTES PERCENT AUTO 26.4 % (15.8-45.3); MEAN PLATELET VOLUME 8.4 fL (6.7-11.0); MONOCYTES ABSOLUTE AUTO 0.8 x10-3/uL (0.0-1.2); MONOCYTES PERCENT AUTO 6.6 % (5.5-15.2); NEUTROPHILS ABSOLUTE AUTO 7.3 x10-3/uL (1.7-6.9); NEUTROPHILS PERCENT AUTO 63.8 % (40.3-71.8); PLATELET COUNT,PLT 266 x10(3)uL (117-477); RED BLOOD CELL COUNT 4.52 x10(6)uL (3.90-5.90); RED CELL DISTRIBUTION WIDTH 13.5 % (12.4-15.0); WHITE BLOOD CELL COUNT,WBC 11.4 x10-3/uL (3.2-10.1)
[2025-08-14 21:46] LABS: BLOOD UREA NITROGEN,BUN 16 mg/dL (7-18); CARBON DIOXIDE,CO2 24 mmol/L (21-32); CHLORIDE,CL 106 mmol/L (100-110); CREATININE 1.0 mg/dL (0.70-1.30); EST CRCL DRUG DOSING (CG) 82.15 mL/min; ESTIMATED GFR 81 mL/min (>60); GLUCOSE RANDOM 147 mg/dL (80-116); POTASSIUM,K 3.9 mmol/L (3.5-5.3); SODIUM,NA 141 mmol/L (135-145)
[2025-08-14 21:52] VITALS: BP 125/77; PULSE 106
[2025-08-14 21:52] LABS: A/G RATIO 1.0; ALANINE AMINOTRANSFERASE,ALT 32 U/L (12-36); ASPARTATE AMNIOTRANSFERASE,AST 20 IU/L (5-25); BILIRUBIN TOTAL 0.5 mg/dL (0.1-1.3); PROTEIN TOTAL,TP 7.5 g/dL (6.0-8.0)
[2025-08-14 21:59] LABS: PRO B-TYPE NATRIUR PEPT,BNPPRO 64.0 pg/mL (<=125)
[2025-08-14] MEDS: Diltiazem 180 MG Cap.CD PO ONE (22:43)
== END 2025-08-15 00:22 | disposition home or self-care (01) ==
LOC: SUPCPDRO 21:23 → FB.ED 21:23
DX: I48.91 Unspecified atrial fibrillation (principal); I10 Essential (primary) hypertension; E66.9 Obesity, unspecified; Z79.899 Other long term (current) drug therapy; Z79.01 Long term (current) use of anticoagulants; Z88.0 Allergy status to penicillin; Z68.31 Body mass index [BMI] 31.0-31.9, adult
CPT/HCPCS: 36415; 71045; 80053; 83880; 84484; 85025; 93005; 96374; 96376; 99285; A9270; J1163; 93010; 99284